=== PATIENT | male | born 1975 | race Two or more races ===

== ENCOUNTER 2023-02-12 16:19 | Emergency (ER) | payer MEDICAID, OTHER ==
[~2023-02-12] VITALS: Ht 177.8 cm; Wt 86.3 kg
[2023-02-12] MEDS ORDERED: HYDROcodone-ACET 5/325MG TAB PO ONE (17:30)
[2023-02-12 17:44] VITALS: BP 139/81; PULSE 97; RESP 20; TEMP 97.4; O2SAT 98
[2023-02-12] MEDS ORDERED: METH-1182 PO (17:45)
[2023-02-12] MEDS ORDERED: IBUP-1456 PO (17:45)
== END 2023-02-12 17:50 | disposition home or self-care (01) ==
LOC: ER 16:19
DX: S46.912A Strain of unspecified muscle, fascia and tendon at shoulder and upper arm level, left arm, initial encounter (principal); S20.212A Contusion of left front wall of thorax, initial encounter; S40.022A Contusion of left upper arm, initial encounter; W22.8XXA Striking against or struck by other objects, initial encounter; Y93.89 Activity, other specified; Y92.69 Other specified industrial and construction area as the place of occurrence of the external cause; Y99.8 Other external cause status
CPT/HCPCS: 71046; 73060; 73090